=== PATIENT | female | born 1980 | race Caucasian/White ===

== ENCOUNTER 2021-11-04 08:00 | Outpatient (CLI) | payer OTHER ==
[2021-11-04 12:44] LABS: BASOPHILS % (AUTO) 0.4 %; EOSINOPHILS # (AUTO) 0.2 10^3/uL (0.0-0.7); EOSINOPHILS % (AUTO) 2.6 %; HCT - HEMATOCRIT 41.6 % (37.0-47.0); HGB - HEMOGLOBIN 13.5 g/dL (12.0-16.0); LYMPHOCYTES # (AUTO) 2.2 10^3/uL (1.5-3.5); MEAN CORPUSCULAR HGB CONC 32.5 g/dL (32.0-36.0); MEAN CORPUSCULAR VOLUME 89.3 fL (81.0-99.0); MEAN PLATELET VOLUME 8.8 fL (7.9-10.8); MONOCYTES # (AUTO) 0.5 10^3/uL (0.0-1.0); NEUTROPHILS # (AUTO) 6.2 10^3/uL (1.5-6.6); NEUTROPHILS % (AUTO) 67.5 %; PLT - PLATELET COUNT 638 10^3/uL (130-450); RED BLOOD COUNT 4.66 10^6/uL (4.20-5.40); WHITE BLOOD COUNT 9.2 x10^3/uL (4.8-10.8)
[2021-11-04 13:13] LABS: ALBUMIN 4.1 g/dL (3.2-5.5); BILIRUBIN,TOTAL 0.7 mg/dL (0.2-1.0); CREATININE 0.9 mg/dL (0.4-1.0); POTASSIUM 4.2 mmol/L (3.5-5.0); TOTAL PROTEIN 8.4 g/dL (6.7-8.2)
== END 2021-11-04 23:59 | disposition home or self-care (01) ==
LOC: LAB.N 08:00
PROVIDERS: ATTEND Nurse Practitioner
DX: R19.7 Diarrhea, unspecified (principal)
CPT/HCPCS: 36415; 80053; 82150; 83690; 85025

== ENCOUNTER 2022-03-18 13:09 | Outpatient (CLI) | payer OTHER ==
[2022-03-18 14:11] VITALS: BP 132/82
--- NOTE | 2022-03-18 14:11 | SLEEP CARE CONSULTATION ---
Information from patient questionnaire entered by Lillie Vincent. I have reviewed and concur with the information entered by Lillie Vincent. This document represents the service I personally performed and the decisions made by me, Tiesha Florian ARNP. History of Present Illness Service Date and Time: 03/18/2022 1309 Reason for Visit: New patient Chief Complaint: reports: Unrefreshed sleep, Snoring, Excessive daytime sleepiness, Fatigue, Frequent awakenings at night Date of Onset: 1.5 YRS Usual bedtime: 0830 Time it takes to fall asleep: 1HR Snores at night: Yes Observed to quit breathing while asleep: No Sleeps alone due to snoring: No Number of times waking at night: 3 Reasons for waking at night: reports: Snoring, Other (UNKNOWN REASONS; dog waking her u[). denies: Choking, Gasping for air Toss, Turn, or Twitch while sleeping: No Recalls having dreams: No ("don't dream that much") Usually gets out of bed at: 0445 to get ready for work; weekends [id number] Feels refreshed in the morning: No Morning headache: Yes (in sinus most mornings; AFTER MORNING SHOWER) Sleepy or fatigued during the day: Yes Ever fallen asleep while driving: No (only long trips in car) Takes day naps: No (weekend only) Dreams during day naps: No Prior sleep studies: No Additional HPI information: I had the pleasure of seeing ONIEL COUGHLIN today regarding the possibility of her having a sleep disorder. Her current complaints are excessive daytime sleepiness, fatigue, frequent night awakenings, snoring and unrefreshed sleep. She states she saw her doctor because her nose is always congested, is dry and she gets nose bleeds. She states she snores "really bad" and wakes up with a dry mouth and lips. She has been falling asleep at work when she gets stationary. She has been "caught" snoring. She states she does not wake up feeling rested in the mornings. - Parasomnia Symptoms Ever been unable to move upon waking from sleep: No Walks in sleep: No Talks in sleep: No Ever acted out dreams in sleep: No Ever felt weak in the knees when startled or emotional: No Bothered by creepy, crawly, restless sensations in legs: No Problems with memory or concentration: Yes (sometimes memory) Subjective Initial Jackson Sleepiness Scale score: 19 (03/18/22) Past Medical History Past Medical History: reports: Anxiety, Depression Social History The patient's occupation is a AM. Patient is Single and lives in [place]. Have you smoked in the past 12 months: No Alcohol use: No Caffeine use: Yes Caffeine amount and frequency: 3 MAYBE 3X A WEEK Family History Family history of sleep disordered breathing: No Allergies and Home Medications Known drug allergies: No Drug allergies reviewed: Yes (NKDA) Home medication list reviewed: Yes Allergy and home medication list: Medications: Prozac (taking now, will change to Wellbutrin later) Review of Systems Weight gain over past 5 years: 150 Cardiovascular: denies: high blood pressure Respiratory: denies: shortness of breath Gastrointestinal: reports: heartburn Neurological: denies: head trauma Psychiatric: reports: anxiety, depression Ear/Nose/Throat: reports: sinus problems, nose bleeds, dry mouth/throat, wisdom teeth removed. denies: tonsillectomy Endocrine: reports: sluggishness Physical Exam Vital signs obtained and entered by: LILLIE Ortiz MA Blood Pressure: 132/82 (LEFT ARM) Cuff size: long Heart Rate: 97 O2 Saturation: 95 Height: 5 ft 5 in Weight: 346 lb 12.8 oz Body Mass Index: 57.6 BMI Classification: Morbidly Obese Neck circumference: 19.5 Mouth and throat: narrow oropharynx Soft palate: long Hard palate: normal Uvula: normal Uvula visualization: 0% Mallampati Class IV Tongue: normal in size Tonsils: 1+ Neck: normal w/o lymphadenopathy or thyromegaly Heart: regular rate and rhythm Lungs: clear bilaterally Impression and Plan 1. Suspected Obstructive Sleep Apnea-Hypopnea Syndrome, as suggested by a history of loud and irregular snoring, morning headache, frequent awakening during the night, unrefreshed sleep, cognitive impairment, and excessive daytime sleepiness. Narrow oropharynx and obesity are common predisposing factors for obstructive sleep apnea-hypopnea syndrome. I recommend proceeding to polysomnography to confirm the diagnosis and to assess severity. If the patient has significant sleep disordered breathing, a manual CPAP titration study will also be performed to find the optimal treatment pressure. I informed the patient of what the sleep studies involve and after some discussion, obtained agreement to proceed. The pathophysiology of obstructive sleep apnea-hypopnea syndrome was discussed with the patient and health risks of cardiovascular and cerebrovascular disease if not treated. Risks of drowsy driving discussed in detail and patient advised to avoid long distance driving and to kiln puller at the first sign of drowsiness. Patient agreed to plan. * Schedule polysomnography * Avoid long distance driving or driving when feeling sleepy. * Avoid alcohol, sedative and muscle relaxant around bedtime. * Attempt to lose weight. * Review instructions provided by trained office staff on how to prepare for the sleep study. * Return for follow-up after sleep study completed. Counseling Topics: Weight loss health impact Visit Type: In Office Time Spent with Patient (minutes): 30 Provider Statement: I spent 100% of the Face to Face Visit with the patient with greater than 50% spent counseling the patient and coordination of care.
== END 2022-03-18 13:10 | disposition home or self-care (01) ==
LOC: SC 13:09
PROVIDERS: ATTEND Nurse Practitioner Family
DX: R06.83 Snoring (principal); G47.10 Hypersomnia, unspecified; R53.83 Other fatigue; F32.A Depression, unspecified; E66.01 Morbid (severe) obesity due to excess calories; Z68.43 Body mass index [BMI] 50.0-59.9, adult
CPT/HCPCS: 99203; 99212

== ENCOUNTER 2022-04-24 19:20 | Outpatient (CLI) | payer OTHER | END 2022-04-24 19:21 | disposition home or self-care (01) | LOC: SC 19:20 | PROVIDERS: ATTEND Nurse Practitioner Family | DX: G47.33 Obstructive sleep apnea (adult) (pediatric) (principal); E66.01 Morbid (severe) obesity due to excess calories; Z68.43 Body mass index [BMI] 50.0-59.9, adult | CPT/HCPCS: 95810 ==

== ENCOUNTER 2022-05-01 14:17 | Outpatient (CLI) | payer OTHER ==
[2022-05-01 15:15] VITALS: BP 126/72
--- NOTE | 2022-05-01 15:15 | SLEEP CARE CONSULTATION ---
Information from patient questionnaire entered by Lakia Vincent. I have reviewed and concur with the information entered by Lakia Vincent. This document represents the service I personally performed and the decisions made by me, Tiesha Florian ARNP. History of Present Illness Service Date and Time: 05/01/2022 141 Initial Sims Sleepiness Scale score: 19 (03/18/22) Current Sims Sleepiness Scale score: 16 (05/01/22) Additional HPI information: ONIEL COUGHLIN returns for follow up and results of the recently performed polysomnography. I explained the pathophysiology behind obstructive sleep apnea. We then spent quite a bit of time discussing different treatment options. For mild obstructive sleep apnea, surgery and oral appliance are alternatives to nasal CPAP therapy but in moderate or severe cases, nasal CPAP is the most effective and reliable treatment. I reviewed the impact of weight changes on sleep apnea and strongly recommended losing weight. After some discussion, the patient opted to go with the nasal CPAP therapy. Nasal autoCPAP set at 5-20 cmH20 will be ordered with rationale explained. A manual titration study will be ordered if unable to find optimal pressure with office adjustments. I explained how CPAP machine works and what to expect when using the machine. Using CPAP every night in order to get used to it was emphasized. Patient advised to put CPAP mask on before getting into bed so as not to fall asleep without CPAP. To assist acclimation to CPAP use, it could also be used for a short time during day while reading or watching TV. The patient was instructed to call the CPAP supplier to discuss any mechanical problem that may occur. If the mask given is uncomfortable or is difficult to keep on through the night even with adjustment, contact the CPAP supplier as many will replace with an other mask style if notified before 30 days. If snoring or perceives is not getting enough air or too much air from the machine, notify this office. Patient does not drink alcohol. Patient was cautioned about risks of drowsy driving until sleepiness symptoms resolve. Patient denies drowsy driving. Sleep Study - Results Type of Sleep Study: Polysomnography (COMPLETED 04/24/22) Prior sleep studies: No Polysomnography/Home Sleep Study results: IMPRESSION: The quality of the study is good. The patient had normal sleep efficiency. The sleep architecture was abnormal for sleep fragmentation and lack of slow wave sleep (N3). Respiratory monitoring showed extremely severe obstructive sleep apnea-hypopnea (AHI = 159.1) associated with frequent arousals, oxyhemoglobin desaturation and very severe hypoxia (johanna oxygen saturation of 46%). Baseline oxygen saturation is also low at 80%. The respiratory events occurred independently of sleep stage and body position (supine AHI = 164.7; nonsupine = 154.81). Snore was moderate to loud in intensity. There was no significant periodic leg movement of sleep. Cardiac rhythm was normal sinus rhythm without significant arrhythmia. No abnormal behavior (parasomnia) observed during the night. Allergies and Home Medications Known drug allergies: No Drug allergies reviewed: Yes Home medication list reviewed: Yes (no changes) Allergy and home medication list: Allergies No Known Drug Allergies Allergy (Verified 05/01/22 14:16) Review of Systems Review of systems same as previous: Yes (no changes) Physical Exam Vital signs obtained and entered by: LAKIA Ortiz MA Blood Pressure: 126/72 (LEFT ARM) Cuff size: long Heart Rate: 103 O2 Saturation: 95 Height: 5 ft 5 in Weight: 356 lb 12.8 oz Body Mass Index: 59.3 BMI Classification: Morbidly Obese Impression and Plan 1. Obstructive Sleep Apnea-Hypopnea Syndrome, extremely severe, with lowest oxygen saturation of 46%. Obviously this is the cause of the patients symptoms of unrefreshed sleep, and excessive daytime sleepiness. Positive pressure therapy could benefit anxiety and depression. As mentioned above, the patient will be started on nasal autoCPAP therapy with pressure set at 5-20 cmH2O. A manual titration study will be completed if unable to find optimal treatment pressure with office adjustments. Compliance guidelines also reviewed. A copy of compliance guidelines will be given for reference at check out. 2. Hypoxemia, very severe, with a johanna oxygen saturation of 46% and 265.6 minutes spent under 90%. Her baseline oxygen saturation was low with an average oxygen saturation of 85%. 3. Morbid Obesity. Currently patients BMI is 59.3. Obesity increases the risk of apnea, CPAP pressure requirements and overall health risks especially cardiovascular and diabetes. Thus patient is advised to[ continue to] lose weight. * Nasal auto CPAP therapy, pressure at 5-20 cm H2O, urgent setup due to hypoxemia. * Attempt to lose weight. * Avoid alcohol consumption near bedtime. * Avoid supine sleep until using CPAP. * The patient is again cautioned about driving until sleepiness completely resolves. * Return one month after CPAP obtained. I will assess response to therapy and compliance at that time. Counseling Topics: Weight loss health impact Prescriptions: Auto CPAP Visit Type: In Office Time Spent with Patient (minutes): 22 Provider Statement: I spent 100% of the Face to Face Visit with the patient with greater than 50% spent counseling the patient and coordination of care.
== END 2022-05-01 14:18 | disposition home or self-care (01) ==
LOC: SC 14:17
PROVIDERS: ATTEND Nurse Practitioner Family
DX: G47.33 Obstructive sleep apnea (adult) (pediatric) (principal); R09.02 Hypoxemia; E66.01 Morbid (severe) obesity due to excess calories; Z68.43 Body mass index [BMI] 50.0-59.9, adult
CPT/HCPCS: 99212; 99213

== ENCOUNTER 2022-05-12 05:51 | Emergency (ER) | payer OTHER ==
[2022-05-12 06:02] VITALS: BP 149/102
--- NOTE | 2022-05-12 06:05 | ED Physician Documentation ---
PD HPI LOWER EXT INJURY - Stated complaint Stated Complaint: LFT KNEE INJURY - History obtained from History obtained from: Patient - Additional information Additional information: HPI from patient. Patient complains of left knee pain. Patient says that at approximately 8:30 PM last night while she was cleaning, she slipped on a wet floor surface causing her left leg to suddenly twist. She did not fall to the ground. She had sudden onset of left anteromedial knee pain which was mild at first, but has steadily progressed in severity. The pain is exacerbated with flexion as well as weight- bearing. Review of Systems Musculoskeletal: reports: Joint pain, Pain with weight bearing. denies: Neck pain, Back pain Neurologic: denies: Head injury PD PAST MEDICAL HISTORY - Present Medications Home Medications: Ambulatory Orders Medication Instructions Recorded Confirmed buPROPion [Wellbutrin Xl] See Rx Instructions .ROUTE .COMPLEX 03/18/22 05/12/22 - Allergies Allergies/Adverse Reactions: Allergies Allergy/AdvReac Type Severity Reaction Status Date / Time No Known Drug Allergies Allergy Verified 05/12/22 05:59 PD ED PE NORMAL - Vitals Vital signs reviewed: Yes - General General: Alert and oriented X 3, No acute distress, Other (obese female in NAD at rest) - Extremities Extremities: No edema, Other (There is tenderness to palpation of the medial aspect of the left knee without crepitus or obvious deformity. range of motion intact in left knee but flexion worsens the pain) Results - Vitals Vitals: Vital Signs - 24 hr 05/12/22 06:00 Temperature 36.9 C Heart Rate 98 Respiratory 20 Rate Blood Pressure 149/102 H O2 Saturation 97 Oxygen O2 Source Room air - Rads (name of study) left knee xrays Relevant Findings:: Prelim report reviewed, See rad report PD Medical Decision Making - ED course Complexity details: reviewed results, re-evaluated patient, considered differential, d/w patient ED course: Plain film x-rays of the left knee are unremarkable for acute injury; mild medial compartment degenerative changes are noted. Results of the x-rays are discussed with the patient. She is provided with crutches so that she can minimize weight-bearing over the next few days, and an Gonzales wrap is placed on the left knee to provide some support and counter-pressure to swelling. Return precautions discussed Departure - Departure Disposition: 01 Home, Self Care Clinical Impression: Left knee sprain Condition: Good Instructions: ED Bandage Elastic Wrap, ED Crutch Walking, ED Sprain Knee Comments: There were no acute findings on the x-rays of your left knee (no evidence of fr actured/broken bones). There is some mild degenerative change of the inner aspect of the knee. You have been provided with an Gonzales wrap which should give some counterpressure to swelling and some mild support to the knee; you can use this during the day for the next few days but do not use the Gonzales wrap at night. You are also being provided with crutches. Even though there is no evidence of a fracture/break, your knee injury will heal faster if you minimize weight- bearing for the next few days. Follow-up with your primary care provider within 7 to 10 days for reevaluation. If your knee injury is not improving by the time of follow-up, further testing might be indicated Discharge Date/Time: 05/12/22 06:56
--- NOTE | 2022-05-12 13:45 | XRAY Report ---
PROCEDURE: Knee 4 View LT INDICATIONS: injury with pain TECHNIQUE: 4 views of the left knee(s) were acquired. COMPARISON: None. FINDINGS: Bones: No fractures or dislocations. No suspicious bony lesions. Soft tissues: No joint effusion. No suspicious soft tissue calcifications. IMPRESSION: No acute bony abnormality. Agree with preliminary report. Reviewed by: Mahendra Gandhi on 05/12/2022 8:01 AM PDT Approved by: Mahendra Gandhi on 05/12/2022 8:01 AM PDT Station ID: [id number]
== END 2022-05-12 06:56 | disposition home or self-care (01) ==
LOC: ED 05:51
DX: S83.92XA Sprain of unspecified site of left knee, initial encounter (principal); X50.1XXA Overexertion from prolonged static or awkward postures, initial encounter; Y93.E9 Activity, other interior property and clothing maintenance
CPT/HCPCS: 99283

== ENCOUNTER 2022-12-17 06:22 | Emergency (ER) | payer OTHER ==
[2022-12-17] MEDS ORDERED: LORazepam 2 MG/ML VIAL IM STA (06:54)
--- NOTE | 2022-12-17 08:17 | ED Physician Documentation ---
PD HPI MHE - Stated complaint Stated Complaint: PANIC ATTACK - Chief complaint Chief Complaint: MHE - History obtained from History obtained from: Patient - History of Present Illness Primary symptom: Anxiety Timing - onset: How many weeks ago (2), Chronic Contributing factors: Work Similar symptoms before: Diagnosis (anxiety) Recently seen: Not recently seen - Additional information Additional information: Purvi Barbosa is a 42-year-old female with a history of anxiety that started when she was in the [employer] and witnessed a coworker fall over the side of the boat and I. She has had somewhat previously with hydroxyzine for treatment of her symptoms and she is on Wellbutrin and sees a counselor every 2 to 3 weeks. She is from the [employer] now after 14 years of service and she has been switched to a job in [employer] and she feels that she did not receive adequate training and she feels that she is having poor work performance.. This has caused her to have more anxiety and she is sleeping poorly. She has not otherwise ill. She denies any suicidal ideation or homicidal ideation. She does not think she needs to be hospitalized. She does live in an apartment in [place] with a roommate who is also in the [employer] she feels that he is supportive to her. She does not have a relationship outside of this. The rest of her family is in [place] which includes a brother and 2 sisters and some nephews. She is adopted and her parents have Review of Systems Constitutional: denies: Fever, Chills Ears: denies: Ear pain Nose: denies: Congestion Throat: denies: Sore throat Cardiac: denies: Chest pain / pressure Respiratory: denies: Dyspnea, Cough GI: denies: Nausea, Vomiting, Constipation, Diarrhea : denies: Dysuria, Frequency Neurologic: denies: Headache, Head injury Psychiatric: reports: Anxiety, Insomnia. denies: Depressed, Suicidal, Homicidal, Hallucinations, Delusions PD PAST MEDICAL HISTORY - Past Medical History Past Medical History: Yes Psych: Depression, Anxiety - Past Surgical History Past Surgical History: Yes Ortho: Other - Present Medications Home Medications: Ambulatory Orders Medication Instructions Recorded Confirmed buPROPion [Wellbutrin Xl] See Rx Instructions .ROUTE .COMPLEX 03/18/22 05/12/22 hydrOXYzine pamoate [Hydroxyzine 25 - 50 mg PO Q6HR PRN #30 cap 12/17/22 Pamoate] - Allergies Allergies/Adverse Reactions: Allergies Allergy/AdvReac Type Severity Reaction Status Date / Time No Known Drug Allergies Allergy Verified 12/17/22 06:32 - Social History Does the pt smoke?: No Smoking Status: Never smoker Does the pt drink ETOH?: No Does the pt have substance abuse?: No - Immunizations Immunizations are current?: Yes - POLST Patient has POLST: No PD ED PE NORMAL - Vitals Vital signs reviewed: Yes (tachy and hypertensive. ) - General General: Alert and oriented X 3, Well developed/nourished, Other (teary eyed to talk with a trembling lower lip) - HEENT HEENT: Atraumatic, PERRL, EOMI - Neck Neck: Supple, no meningeal sign, No bony TTP - Cardiac Cardiac: RRR, No murmur - Respiratory Respiratory: No respiratory distress, Clear bilaterally - Abdomen Abdomen: Soft, Non tender - Back Back: No CVA TTP, No spinal TTP - Derm Derm: Normal color, Warm and dry, No rash - Extremities Extremities: No deformity, No edema - Neuro Neuro: Alert and oriented X 3, independent consultant 2-12 intact, No motor deficit, No sensory deficit, Normal speech Eye Opening: Spontaneous Motor: Obeys Commands Verbal: Oriented GCS Score: 15 - Psych Psych: Other (mood is anxious affect is labile) Results - Vitals Vitals: Vital Signs - 24 hr 12/17/22 06:30 Temperature 36.4 C L Heart Rate 105 H Respiratory 22 Rate Blood Pressure 187/114 H O2 Saturation 94 Oxygen O2 Source Room air PD Medical Decision Making - ED course Complexity details: reviewed old records, considered differential, d/w patient ED course: 42-year-old female with a chief complaint of anxiety has been given an Ativan prior to my evaluation and she still feels quite anxious and has a labile affect. She denies any suicidal or homicidal ideation she does not feel she needs to be hospitalized. She does feel that some medication would be helpful and I have offered to give her a note for work for 5 days and asked her to see her counselor urgently. She has had luck previously with hydroxyzine and would prefer that over Ativan. Departure - Departure Disposition: 01 Home, Self Care Clinical Impression: Anxiety as acute reaction to gross stress Condition: Stable Instructions: ED Stress React, ED Panic Attack Follow-Up: [facility] [place] [Provider Group] Prescriptions: hydrOXYzine pamoate [Hydroxyzine Pamoate] 25 - 50 mg PO Q6HR PRN #30 cap PRN Reason: Anxiety Comments: Purvi, today it looks like you are quite anxious about poor work performance and separation from the [employer]. My recommendation is to seek urgent counseling from your counselor and in the meantime we can provide some medication which should help with the symptoms of anxiety. You have taken hydroxyzine previously and I have E scribed some 25 mg tablets to the [facility] in [place]. You can take 1 or 2 of these as often as every 6 hours. This is a sedating medication and you cannot drive or operate machinery after you have taken it. Forms: Activity restrictions
[2022-12-17 08:45] VITALS: BP 148/93; O2SAT 100
== END 2022-12-17 08:37 | disposition home or self-care (01) ==
LOC: ED 06:22
DX: F41.1 Generalized anxiety disorder (principal); F43.0 Acute stress reaction
CPT/HCPCS: 96372; 99283; J2060